=== PATIENT | male | born 1950 | race Caucasian/White ===

== ENCOUNTER 2019-10-04 11:21 | Emergency (ER) | payer OTHER, MEDICARE ==
--- OUTSIDE RECORDS SUMMARY | 2019-10-04 11:26 | XMS REPORT ---
:1950 [facility] Address [address] [place] [address] Dr. Urbina [address] [place] [id number] Care Team Providers Name Role Phone Unavailable Unavailable Unavailable Problems This patient has no known problems. Allergies, Adverse Reactions, Alerts This patient has no known allergies or adverse reactions. Medications This patient has no known medications.
[2019-10-04 12:15] LABS: Absolute Lymphocytes (CBC) 2.2 K/uL (0.7-4.9); Basophils % 0.5 % (0-1.3); Hematocrit 38.5 % (39.6-49.0); Lymphocytes % 17.8 % (15.3-44.8); MPV 8.6 fL (7.6-11.3); RBC Red Blood Cell Count 4.13 M/uL (4.33-5.43)
[2019-10-04 12:25] LABS: ALT/SGPT 54 U/L (12-78); AST/SGOT 25 U/L (15-37); Albumin 3.6 g/dL (3.4-5.0); Alkaline Phosphatase 71 U/L (45-117); BUN Blood Urea Nitrogen 36 mg/dL (7-18); Bicarbonate 24 mmol/L (21-32); Bilirubin Direct 0.1 mg/dL (0-0.2); Bilirubin Total 0.3 mg/dL (0.2-1.0); Glucose Level 160 mg/dL (74-106); Magnesium 1.9 mg/dL (1.8-2.4); NT PRO-BNP 31 pg/mL (<125); Potassium 4.6 mmol/L (3.5-5.1); Protein, Total 6.6 g/dL (6.4-8.2); Sodium Level 138 mmol/L (136-145); Troponin (Emerg Dept Use Only) < 0.02 ng/mL (0.0-0.045)
--- NOTE | 2019-10-04 12:36 | RAD REPORT ---
EXAM DESCRIPTION: RAD - Chest Single View - 10/04/2019 12:29 pm CLINICAL HISTORY: weakness, near syncope COMPARISON: Chest Single View dated 03/24/2016; CHEST SINGLE VIEW dated 07/23/2013 TECHNIQUE: AP portable chest image was obtained 10/04/2019 12:29 pm . FINDINGS: No peripheral mass or consolidation. Interstitial pattern is not substantially different f rom the comparison studies. Cardiac silhouette is enlarged similar to prior imaging. No acute vascula r engorgement. Mediastinal and hilar regions are not clearly different. No measurable pleural effusio n and no pneumothorax. No acute bony abnormality seen. No acute aortic findings suspected. IMPRESSION: No acute lung parenchymal finding. Interstitial pattern matches comparison. Cardiomegaly with out additional findings for significant failure or volume overload. Heart size matc hes prior imaging.
[2019-10-04] MEDS ORDERED: NA CHLORIDE 0.9% 500 ML ONE (13:38)
--- NOTE | 2019-10-04 15:02 | ER ---
Nurse's Notes [facility] Name: Pedro Zavala Jr Age: 69 yrs Sex: Male : 1950 Arrival Date: 10/04/2019 Time: 11:24 Bed 3 Private MD: Diagnosis: Weakness;Dehydration;Syncope and collapse-Near Presentation: 10/04 11:24 Presenting complaint: EMS states: pt took hydralazine this morning before Physical aa5 therapy, during physical therapy pt became dizzy, weakness to legs, pt was given juice and peanut butter by PT staff before EMS arrival, negative fall. EMS reports pt's BP was 80/55 upon scene arrival and FSBG 183. 11:24 Transition of care: Physical Therapy. Onset of symptoms was October 04, 2019. Risk aa5 Assessment: Do you want to hurt yourself or someone else? Patient reports no desire to harm self or others. Initial Sepsis Screen: Does the patient meet any 2 criteria? Systolic BP < 90 mmHg. HR > 90 bpm. Yes Does the patient have a suspected source of infection? No. Patient's initial sepsis screen is negative. Care prior to arrival: None. 11:24 Acuity: HILDA 2 aa5 11:24 Method Of Arrival: EMS: [facility] aa5 Historical: - Allergies: 11:24 No Known Allergies; aa5 - PMHx: 11:24 Diabetes - NIDDM; Hyperlipidemia; Hypertension; neuropathy; aa5 11:24 Chronic back pain; aa5 - PSHx: 11:24 Cardiac Cath; Heart stents; aa5 - Immunization history:: Adult Immunizations up to date. - Coronavirus screen:: The patient has NOT traveled to [place], [place], or [place] in the past 14 days. The patient has NOT had contact with known/suspected case of Coronavirus?. - Social history:: Smoking status: Patient denies any tobacco usage or history of. - Ebola Screening: : No symptoms or risks identified at this time. Screenin:29 Abuse screen: Denies threats or abuse. Nutritional screening: No deficits noted. em Tuberculosis screening: No symptoms or risk factors identified. Fall Risk None identified. Assessment: 11:30 General: Appears in no apparent distress. comfortable, Behavior is calm, cooperative, em Denies fever. Pain: Denies pain. Neuro: Level of Consciousness is awake, alert, obeys commands, Oriented to person, place, time, situation, Appropriate for age Denies dizziness. 11:30 Cardiovascular: Denies chest pain, shortness of breath, Rhythm is sinus rhythm. em Respiratory: Airway is patent Respiratory effort is even, unlabored, Respiratory pattern is regular, symmetrical. GI: Patient currently denies nausea, vomiting. Derm: Skin is intact, is healthy with good turgor, Skin is pink, warm \T\ dry. Musculoskeletal: Capillary refill < 3 seconds, Range of motion: intact in all extremities. 12:58 Reassessment: Patient appears in no apparent distress at this time. Patient and/or em family updated on plan of care and expected duration. Pain level reassessed. Patient is alert, oriented x 3, equal unlabored respirations, skin warm/dry/pink. Patient states symptoms have improved. 12:59 Reassessment: lunch tray given. em 14:30 Reassessment: [employer] PENDING FOR DISPO. PT EXPRESSING RELIEF OF S/S. bp 15:20 Reassessment: PT D/C HOME VIA W/C WITH FAMILY, DX WITH DEHYDRATION. bp Vital Signs: 11:24 BP 87 / 55; Pulse 92; Resp 16 S; Temp 97.9(O); Pulse Ox 95% on R/A; Pain 0/10; aa5 12:16 BP 93 / 67; Pulse 80; Resp 16 S; Pulse Ox 96% on R/A; aa5 12:24 BP 107 / 63; Pulse 78; Resp 16 S; Pulse Ox 97% on R/A; aa5 12:58 BP 106 / 69 Supine; Pulse 77; em 12:58 BP 100 / 60 Sitting; Pulse 84; em 12:58 BP 98 / 66; Pulse 102; em 13:16 BP 103 / 72; Pulse 91; Resp 18 S; Pulse Ox 95% on R/A; em 14:38 BP 117 / 76 Supine; Pulse 79; bp 14:40 BP 109 / 62 Sitting; Pulse 83; bp 14:42 BP 101 / 74 Standing; Pulse 87; bp 15:20 BP 113 / 69; Pulse 87; Resp 17; Temp 98; Pulse Ox 97% ; bp ED Course: 11:24 Patient arrived in ED. em 11:24 Arm band placed on. aa5 11:26 Александр Davis MD is Attending Physician. kdr 11:27 Benton Daley, RN is Primary Nurse. em 11:28 Triage completed. aa5 11:29 Patient has correct armband on for positive identification. Placed in gown. Bed in low em position. Call light in reach. Side rails up X2. Adult w/ patient. pharmacy benefits coordinator on. Pulse ox on. NIBP on. 11:29 Maintain EMS IV. Dressing intact. Good blood return noted. Site clean \T\ dry. Gauge \T\ em site: 20 RAC. 11:50 EKG done, by flight data technician. reviewed by Александр Davis MD. at1 12:29 XRAY Chest (1 view) In Process Unspecified. EDMS 15:02 No provider procedures requiring assistance completed. IV discontinued, intact, em bleeding controlled, No redness/swelling at site. Pressure dressing applied. Administered Medications: 12:02 Drug: NS 0.9% 500 ml Route: IV; Rate: bolus; Site: right antecubital; em 12:28 Follow up: IV Status: Completed infusion; IV Intake: 500ml iw 13:36 Drug: NS 0.9% 500 ml Route: IV; Rate: bolus; Site: right antecubital; aa5 14:30 Follow up: IV Status: Completed infusion; IV Intake: 500ml em Point of Care Testing: Blood Glucose: 11:32 Blood Glucose: 159 mg/dL; aa5 Ranges: Intake: 12:28 IV: 500ml; Total: 500ml. iw 14:30 IV: 500ml; Total: 1000ml. em Outcome: 15:01 Discharge ordered by . kdr 15:02 Discharged to home via wheelchair, with family. em 15:02 Condition: good 15:02 Discharge instructions given to patient, family, Instructed on discharge instructions, follow up and referral plans. Demonstrated understanding of instructions, follow-up care. 15:23 Patient left the ED. bp Signatures: Dispatcher [employer] EDAR Александр Davis MD MD kdr Benton Daley, RN RN em Cynthia Skinner, ASHA BARRY iw Majo Flowers RN RN aa5 Janna Garrett, chassis engineer EKG Tat1 Abdelramhan Epstein RN RN bp
--- NOTE | 2019-10-04 15:02 | EDPHYS ---
Physician Documentation [facility] Name: Pedro Zavala Jr Age: 69 yrs Sex: Male : 1950 Arrival Date: 10/04/2019 Time: 11:24 Bed 3 Private MD: ED Physician Александр Davis HPI: 10/04 15:52 This 69 yrs old Male presents to ER via EMS with complaints of low blood kdr pressure. 15:52 The patient was in physical therapy today when he began to get light headed and had a kdr near syncopal episode. His was present and she pulled a chair over for him to sit in. he never had LOC and his s/s recovered in a minute or two. Onset: The symptoms/episode began/occurred suddenly, just prior to arrival. Severity of symptoms: At their worst the symptoms were mild moderate just prior to arrival, in the emergency department the symptoms are unchanged. The patient has not experienced similar symptoms in the past. The patient has not recently seen a physician. Historical: - Allergies: 11:24 No Known Allergies; aa5 - PMHx: 11:24 Diabetes - NIDDM; Hyperlipidemia; Hypertension; neuropathy; aa5 11:24 Chronic back pain; aa5 - PSHx: 11:24 Cardiac Cath; Heart stents; aa5 - Immunization history:: Adult Immunizations up to date. - Coronavirus screen:: The patient has NOT traveled to [place], [place], or [place] in the past 14 days. The patient has NOT had contact with known/suspected case of Coronavirus?. - Social history:: Smoking status: Patient denies any tobacco usage or history of. - Ebola Screening: : No symptoms or risks identified at this time. ROS: 15:52 Constitutional: Negative for fever, chills, and weight loss, Eyes: Negative for injury, kdr pain, redness, and discharge, ENT: Negative for injury, pain, and discharge, Neck: Negative for injury, pain, and swelling, Cardiovascular: Negative for chest pain, palpitations, and edema, Respiratory: Negative for shortness of breath, cough, wheezing, and pleuritic chest pain, Abdomen/GI: Negative for abdominal pain, nausea, vomiting, diarrhea, and constipation, Back: Negative for injury and pain, : Negative for injury, bleeding, discharge, and swelling, MS/Extremity: Negative for injury and deformity, Skin: Negative for injury, rash, and discoloration, Psych: Negative for depression, anxiety, suicide ideation, homicidal ideation, and hallucinations, Allergy/Immunology: Negative for hives, rash, and allergies, Endocrine: Negative for neck swelling, polydipsia, polyuria, polyphagia, and marked weight changes, Hematologic/Lymphatic: Negative for swollen nodes, abnormal bleeding, and unusual bruising. 15:52 Neuro: Positive for dizziness, near syncope, weakness, Negative for altered mental status, gait disturbance, headache, hearing loss, loss of consciousness, numbness, seizure activity, speech changes, syncope, tingling, tinnitus, tremor, visual changes. Exam: 15:52 Constitutional: This is a well developed, well nourished patient who is awake, alert, kdr and in no acute distress. Head/Face: Normocephalic, atraumatic. Eyes: Pupils equal round and reactive to light, extra-ocular motions intact. Lids and lashes normal. Conjunctiva and sclera are non-icteric and not injected. Cornea within normal limits. Periorbital areas with no swelling, redness, or edema. Neck: Trachea midline, no thyromegaly or masses palpated, and no cervical lymphadenopathy. Supple, full range of motion without nuchal rigidity, or vertebral point tenderness. No Meningismus. Chest/axilla: Normal chest wall appearance and motion. Nontender with no deformity. No lesions are appreciated. Cardiovascular: Regular rate and rhythm with a normal S1 and S2. No gallops, murmurs, or rubs. Normal PMI, no JVD. No pulse deficits. Respiratory: Lungs have equal breath sounds bilaterally, clear to auscultation and percussion. No rales, rhonchi or wheezes noted. No increased work of breathing, no retractions or nasal flaring. Abdomen/GI: Soft, non-tender, with normal bowel sounds. No distension or tympany. No guarding or rebound. No evidence of tenderness throughout. Back: No spinal tenderness. No costovertebral tenderness. Full range of motion. Skin: Warm, dry with normal turgor. Normal color with no rashes, no lesions, and no evidence of cellulitis. MS/ Extremity: Pulses equal, no cyanosis. Neurovascular intact. Full, normal range of motion. Neuro: Awake and alert, GCS 15, oriented to person, place, time, and situation. Cranial nerves II-XII grossly intact. Motor strength 5/5 in all extremities. Sensory grossly intact. Cerebellar exam normal. Normal gait. Psych: Awake, alert, with orientation to person, place and time. Behavior, mood, and affect are within normal limits. Vital Signs: 11:24 BP 87 / 55; Pulse 92; Resp 16 S; Temp 97.9(O); Pulse Ox 95% on R/A; Pain 0/10; aa5 12:16 BP 93 / 67; Pulse 80; Resp 16 S; Pulse Ox 96% on R/A; aa5 12:24 BP 107 / 63; Pulse 78; Resp 16 S; Pulse Ox 97% on R/A; aa5 12:58 BP 106 / 69 Supine; Pulse 77; em 12:58 BP 100 / 60 Sitting; Pulse 84; em 12:58 BP 98 / 66; Pulse 102; em 13:16 BP 103 / 72; Pulse 91; Resp 18 S; Pulse Ox 95% on R/A; em 14:38 BP 117 / 76 Supine; Pulse 79; bp 14:40 BP 109 / 62 Sitting; Pulse 83; bp 14:42 BP 101 / 74 Standing; Pulse 87; bp 15:20 BP 113 / 69; Pulse 87; Resp 17; Temp 98; Pulse Ox 97% ; bp MDM: 15:01 Patient medically screened. kdr 15:52 Data reviewed: nurses notes. Counseling: I had a detailed discussion with the patient kdr and/or guardian regarding: the historical points, exam findings, and any diagnostic results supporting the discharge/admit diagnosis, lab results, radiology results, the need for outpatient follow up. 10/04 11:41 Order name: Basic Metabolic Panel; Complete Time: 15: [facility] 10/04 11:41 Order name: CBC with Diff; Complete Time: 15: [facility] 10/04 11:41 Order name: LFT's; Complete Time: 15: [facility] 10/04 11:41 Order name: Magnesium; Complete Time: 15: [facility] 10/04 11:41 Order name: NT PRO-BNP; Complete Time: 15:02 [facility] 10/04 11:41 Order name: PT-INR; Complete Time: 15: [facility] 10/04 11:41 Order name: Troponin (emerg Dept Use Only); Complete Time: 15: [facility] 10/04 11:41 Order name: XRAY Chest (1 view); Complete Time: 15: kdr 10/04 11:41 Order name: EKG; Complete Time: 11:42 kdr 10/04 11:41 Order name: Cardiac monitoring; Complete Time: 12: kdr 10/04 11:44 Order name: Glucose, Ancillary Testing EDMS 10/04 12:28 Order name: Diet Ada 1800 Jean-Claude; Complete Time: 12: iw 10/04 11:41 Order name: EKG - Nurse/Tech; Complete Time: 12: kdr 10/04 11:41 Order name: IV Saline Lock; Complete Time: 12: kdr 10/04 11:41 Order name: Labs collected and sent; Complete Time: 12: kdr 10/04 11:41 Order name: O2 Per Protocol; Complete Time: 12: kdr 10/04 11:41 Order name: O2 Sat Monitoring; Complete Time: 12: kdr 10/04 11:42 Order name: Orthostatic Blood Pressure; Complete Time: 12:57 kdr EC:48 Rate is 92 beats/min. Rhythm is regular, Normal Sinus Rhythm with No ectopy. QRS Harper kdr is Normal. OH interval is normal. Clinical impression: NSR w/ Non-specific ST/T Changes and Abnormal EKG without significant change. Administered Medications: 12:02 Drug: NS 0.9% 500 ml Route: IV; Rate: bolus; Site: right antecubital; em 12:28 Follow up: IV Status: Completed infusion; IV Intake: 500ml iw 13:36 Drug: NS 0.9% 500 ml Route: IV; Rate: bolus; Site: right antecubital; aa5 14:30 Follow up: IV Status: Completed infusion; IV Intake: 500ml em Point of Care Testing: Blood Glucose: 11:32 Blood Glucose: 159 mg/dL; aa5 Ranges: Critical Glucose Levels:Adult <50 mg/dl or >400 mg/dl <40 mg/dl or >180 mg/dl Disposition: 10/04/19 15:01 Discharged to Home. Impression: Weakness, Dehydration, Syncope and collapse - Near. - Condition is Stable. - Discharge Instructions: Dehydration, Adult, Near-Syncope, Near-Syncope, [id number], Weakness, [id number]. - Medication Reconciliation Form, Thank You Letter form. - Follow up: Private Physician; When: 2 - 3 days; Reason: If symptoms return, Further diagnostic work-up, Recheck today's complaints, Continuance of care, Re-evaluation by your physician. - Problem is new. - Symptoms are resolved. Signatures: Dispatcher [employer] EDMS Александр Davis MD MD kdr Munoz, Edgar, RN RN em Majo Flowers RN RN aa5 Abdelrahman Epstein RN RN bp Williams, Irene RN iw Corrections: (The following items were deleted from the chart) 15:23 15:01 10/04/2019 15:01 Discharged to Home. Impression: Weakness; Dehydration; Syncope bp and collapse - Near. Condition is Stable. Forms are Medication Reconciliation Form, Thank You Letter, Antibiotic Education, Prescription Opioid Use. Follow up: Private Physician; When: 2 - 3 days; Reason: If symptoms return, Further diagnostic work-up, Recheck today's complaints, Continuance of care, Re-evaluation by your physician. Problem is new. Symptoms are resolved. kdr
[2019-10-04 15:52] VITALS: BP 113/69; TEMP 98; O2SAT 97
--- NOTE | 2019-10-04 15:53 | EKG ---
Test Date: 2019-10-04 Test Time: 11:45:15 Assistant Department Manager: JANET MEASUREMENT RESULTS: Intervals: Rate: 92 GA: 178 QRSD: 92 QT: 340 QTc: 420 Mur[place]ugh: P: 18 GA: 178 QRS: -21 T: 61 INTERPRETIVE STATEMENTS: Normal sinus rhythm Minimal voltage criteria for LVH, may be normal variant Inferior infarct, age undetermined Abnormal ECG Compared to ECG 03/26/2016 15:06:31 Left ventricular hypertrophy now present Myocardial infarct finding now present Electronically Signed On 10-04-19 15:51:30 COVERSTITCH MACHINE OPERATOR by Walker Bates
== END 2019-10-04 15:23 | disposition home or self-care (01) ==
LOC: ER 11:21
DX: R53.1 Weakness (principal); R55 Syncope and collapse; E86.0 Dehydration; Z95.5 Presence of coronary angioplasty implant and graft
CPT/HCPCS: 93005; 85025; 80048; 36415; 83735; 85610; 82947; 80076; 84484; 83880; 71045; 96360; 99284; J7040